=== PATIENT | male | born 1970 | race Two or more races ===

== ENCOUNTER 2019-11-16 14:29 | Emergency (ER) | payer OTHER ==
[~2019-11-16] VITALS: Ht 182.9 cm; Wt 99.8 kg
[~2019-11-16 14:29] MED LIST: MOTRIN800 MG PO
[2019-11-16] MEDS ORDERED: CLARITIN-D 121 EACH PO (16:49)
== END 2019-11-16 17:35 | disposition home or self-care (01) ==
LOC: ER 14:29
DX: R09.81 Nasal congestion (principal); B34.9 Viral infection, unspecified; Z20.828 Contact with and (suspected) exposure to other viral communicable diseases